=== PATIENT | female | born 1980 | race Caucasian/White ===

== ENCOUNTER 2023-03-31 16:28 | Inpatient (IN) | payer OTHER, BC ==
[~2023-03-31 16:28] MED LIST: Iopamidol 370 76% 100 ML VIAL ONE
[2023-03-31 16:50] LABS: #Monocytes 0.7 thou/uL (0.11-0.59); #Neutrophils 7.9 thou/uL (1.40-6.50); %Basophils 0.3 % (0.0-1.0); %Eosinophils 0.3 % (0.0-10.0); %Lymphocytes 13.5 % (21.0-51.0); %Monocytes 7.2 % (0.0-10.0); %Neutrophils 77.7 % (42.0-75.0); Hemoglobin 13.7 g/dL (12.0-16.0); Mean Corpuscular HGB CONC 32.7 g/dL (32.0-36.0); Mean Corpuscular Hemoglobin 31.1 pg (27.0-31.0); Mean Corpuscular Volume 95.2 fl (78.0-98.0); Mean Platelet Volume 9.5 fL (7.4-10.4); Platelet Count 193 10x3/uL (130-400); RBC Distribution Width 13.1 % (11.5-14.5); White Blood Cell (WBC) Count 10.2 10x3/uL (4.8-10.8)
[2023-03-31 16:57] LABS: BHCG - Serum Negative (NEGATIVE); Pregs Control Background? CLEAR/WHITE (CLR/WHITE); Pregs Control Bar Appear? YES (CONTROL BAR)
[2023-03-31] MEDS ORDERED: Morphine 4 MG/ML VIAL ONE ×2 (17:03→19:34)
[2023-03-31 17:07] LABS: ALT (SGPT) 17 U/L (8-55); AST (SGOT) 29 U/L (5-34); Albumin 3.9 g/dL (3.5-5.0); Alkaline Phosphatase 49 U/L (40-110); Anion Gap 15 mmol/L (10-20); BUN (Urea Nitrogen) 13 mg/dL (7.0-18.7); Bilirubin, Total 0.6 mg/dL (0.2-1.2); Calc. Creatinine Clearance 0 mL/min (70-130); Calcium 8.9 mg/dL (7.8-10.44); Carbon Dioxide 22 mmol/L (22-29); Chloride 104 mmol/L (98-107); Estimated GFR 92; Globulin 2.8 g/dL (2.4-3.5); Glucose 111 mg/dL (70-105); Potassium 3.8 mmol/L (3.5-5.1); Protein, Total 6.7 g/dL (6.0-8.3); Sodium 137 mmol/L (136-145)
[2023-03-31] MEDS ORDERED: Ondansetron PF 4 MG/2 ML Vial ONE ×2 (17:11→19:34)
[2023-03-31] MEDS ORDERED: Lidocaine 1% PF 5 ML VIAL ONE (17:21)
[2023-03-31 17:33] LABS: INR-International Normal Ratio 0.9
[2023-03-31 17:37] LABS: PTT 22.2 sec (22.9-36.1)
[2023-03-31] MEDS ORDERED: HYDROcodone/Acetaminophen 5/325 mg Tablet ONE (21:45)
[2023-03-31] MEDS ORDERED: Ketorolac Tromethamine 30 MG/ML VIAL ONE (22:24)
[2023-03-31] MEDS ORDERED: Dextrose 50% Abboject 50 ML SYRINGE SLOW IVP PRN (22:29)
[2023-03-31] MEDS ORDERED: TETANUS, DIPHTHERIA TOX,ADULT (TDVAX) 0.5 ML VIAL IM ONE (22:29)
[2023-03-31] MEDS ORDERED: Dextrose 5% in Water 1,000 ML IV PRN (22:29)
[2023-03-31] MEDS ORDERED: Ondansetron ODT 4 MG TAB PO PRN (22:29)
[2023-03-31] MEDS ORDERED: Ondansetron PF 4 MG/2 ML Vial IVP PRN (22:29)
[2023-04-01 00:22] VITALS: BMI 21.2
[2023-04-01] MEDS: Ketorolac Tromethamine 30 MG/ML VIAL IVP SCH ×2 (00:48→05:52)
[2023-04-01] MEDS: Acetaminophen 500 MG TAB PO SCH ×5 (00:49→23:59)
[2023-04-01] MEDS: Cyclobenzaprine 10 MG TAB PO PRN (00:50)
[2023-04-01] MEDS: traMADol HCl 50 MG TAB PO SCH ×5 (00:50→23:58)
[2023-04-01] MEDS: traMADol HCl 50 MG TAB PO PRN ×2 (00:50→09:37)
[2023-04-01 02:28] LABS: Mucous/LPF 3+ LPF (<2+); RBC/HPF 0-3 HPF (0-3); Squamous Epithelial 0-3 HPF (0-3); WBC/HPF 0-3 HPF (0-3)
[2023-04-01 02:29] LABS: Bacteria/HPF 1+ HPF (None Seen)
[2023-04-01] MEDS: Gabapentin 100 MG CAP PO SCH ×3 (05:52→21:39)
[2023-04-01] MEDS ORDERED: Famotidine 20 MG TAB PO SCH (09:00)
[2023-04-01] MEDS: Polyethylene Glycol 3350 17 GM Packet PO SCH (09:37)
[2023-04-01] MEDS: Senokot S 8.6-50 MG TAB PO SCH ×2 (09:37→21:40)
[2023-04-02] MEDS: traMADol HCl 50 MG TAB PO SCH ×4 (05:50→23:40)
[2023-04-02] MEDS: Acetaminophen 500 MG TAB PO SCH ×4 (05:51→23:40)
[2023-04-02] MEDS: Gabapentin 100 MG CAP PO SCH ×3 (05:51→22:51)
[2023-04-02] MEDS: Senokot S 8.6-50 MG TAB PO SCH ×2 (11:13→22:56)
[2023-04-02] MEDS: Polyethylene Glycol 3350 17 GM Packet PO SCH (11:13)
[2023-04-02] MEDS: Melatonin 3 MG TAB PO SCH (22:51)
[2023-04-03] MEDS: traMADol HCl 50 MG TAB PO SCH ×4 (06:06→23:12)
[2023-04-03] MEDS: Acetaminophen 500 MG TAB PO SCH (06:07)
[2023-04-03] MEDS: Gabapentin 100 MG CAP PO SCH (06:07)
[2023-04-03] MEDS: Senokot S 8.6-50 MG TAB PO SCH ×2 (08:32→22:54)
[2023-04-03] MEDS: Polyethylene Glycol 3350 17 GM Packet PO SCH (08:33)
[2023-04-03] MEDS: Acetaminophen 325 MG TAB PO SCH ×3 (12:09→23:12)
[2023-04-03] MEDS: Acetaminophen/Codeine 30-300mg Tablet PO SCH ×3 (12:11→23:13)
[2023-04-03] MEDS: Gabapentin 300 MG CAP PO SCH ×2 (15:18→21:27)
[2023-04-03] MEDS: Melatonin 3 MG TAB PO SCH (21:27)
[2023-04-04] MEDS: Acetaminophen 325 MG TAB PO SCH ×2 (06:00→12:13)
[2023-04-04] MEDS: Acetaminophen/Codeine 30-300mg Tablet PO SCH ×2 (06:00→12:14)
[2023-04-04] MEDS: traMADol HCl 50 MG TAB PO SCH ×2 (06:00→12:13)
[2023-04-04] MEDS: Senokot S 8.6-50 MG TAB PO SCH (10:03)
[2023-04-04] MEDS: Polyethylene Glycol 3350 17 GM Packet PO SCH (10:04)
[2023-04-04] MEDS: Gabapentin 300 MG CAP PO SCH (10:04)
[2023-04-04] MEDS: Cyclobenzaprine 10 MG TAB PO PRN (10:08)
[2023-04-04 12:27] VITALS: BP 112/74; TEMP 98.3
== END 2023-04-04 13:48 | disposition home or self-care (01) | DRG 552 ==
LOC: ERS 16:28 → SURG A 22:09 → OBSVTOIN 04-01 15:38
PROVIDERS: ADMIT Specialist; ATTEND Specialist
DX: S22.089A Unspecified fracture of T11-T12 vertebra, initial encounter for closed fracture (principal); Z90.710 Acquired absence of both cervix and uterus; V43.62XA Car passenger injured in collision with other type car in traffic accident, initial encounter; Z90.721 Acquired absence of ovaries, unilateral; Z88.1 Allergy status to other antibiotic agents; F17.290 Nicotine dependence, other tobacco product, uncomplicated; S51.012A Laceration without foreign body of left elbow, initial encounter
CPT/HCPCS: 12002; 70450; 71045; 71260; 72125; 74177; 80053; 81015; 83690; 84703; 85025; 85610; 85730; 90714; 93005; 96374; 96375; 96376; G0378; G0390; J1650; J1885; J2270; J2405; Q9967

== ENCOUNTER 2023-05-29 09:36 | Outpatient (CLI) | payer BC | END 2023-05-29 09:37 | disposition home or self-care (01) | LOC: RAD 09:36 | PROVIDERS: ATTEND Neurological Surgery | DX: M48.56XA Collapsed vertebra, not elsewhere classified, lumbar region, initial encounter for fracture (principal); M89.9 Disorder of bone, unspecified; M48.54XA Collapsed vertebra, not elsewhere classified, thoracic region, initial encounter for fracture | CPT/HCPCS: 72070; 72100 ==

== ENCOUNTER 2023-06-25 10:18 | Outpatient (CLI) | payer BC | END 2023-06-25 10:19 | disposition home or self-care (01) | LOC: RAD 10:18 | PROVIDERS: ATTEND Neurological Surgery | DX: S22.008A Other fracture of unspecified thoracic vertebra, initial encounter for closed fracture (principal); M43.8X4 Other specified deforming dorsopathies, thoracic region | CPT/HCPCS: 72072 ==

== ENCOUNTER 2023-08-07 07:20 | Outpatient (CLI) | payer BC | END 2023-08-07 07:21 | disposition home or self-care (01) | LOC: RAD 07:20 | PROVIDERS: ATTEND Neurological Surgery | DX: M48.56XA Collapsed vertebra, not elsewhere classified, lumbar region, initial encounter for fracture (principal) | CPT/HCPCS: 72072 ==